=== PATIENT | female | born 1980 | race Hispanic/Latino ===

== ENCOUNTER 2017-12-19 12:04 | Inpatient (IN) | payer MEDICAID, OTHER ==
[2017-12-19 12:43] VITALS: BMI 19.5
--- NOTE | 2017-12-19 12:45 | ED PDOC ---
Arrival/HPI - General Time Seen by Provider: 12/19/17 12:42 - History of Present Illness Narrative History of Present Illness (Text): 37 y/o F c PMHx PCOS, bipolar disorder transferred from [facility] for psychiatric admission. Patient states she has been having increased anxiety , feeling overwhelmed with adult responsibilities. She finds herself avoiding activities that will make her anxious. She states she has been laying in bed for a long time and not finding any enjoyment in activities. Medically cleared at [facility]. Family/Social History Family/Social History: No Known Family HX Allergies/Home Meds Allergies/Adverse Reactions: Allergies No Known Allergies Allergy (Verified 12/19/17 12:42) Home Medications: Home Meds Medication Instructions Recorded Confirmed No Known Home Med 12/19/17 12/19/17 Review of Systems - Physician Review All systems were reviewed & negative as marked: Yes - Review of Systems Constitutional: absent: Fevers Respiratory: absent: SOB Physical Exam - Physical Exam Narrative Physical Exam (Text): Gen: NAD Head: NC Eyes: No scleral icterus ENT: MMM Neck: No goiter CV: Regular rate Resp: No accessory muscle use Extremities: No swelling Skin: No rash Neuro: Alert, no focal deficit Vital Signs Temp Pulse Resp BP Pulse Ox 12/19/17 12:22 98.3 F 86 18 121/76 100 Disposition/Present on Arrival - Present on Arrival Any Indicators Present on Arrival: Yes - Disposition Have Diagnosis and Disposition been Completed?: Yes Diagnosis: Depressive disorder Disposition Time: 12:45 Patient Plan: Admission Condition: STABLE Referrals: PCP,NO [Primary Care Provider] - Follow up with primary
[2017-12-19 13:32] VITALS: O2SAT 98
[2017-12-19] MEDS ORDERED: Alum-Mag Hydrox-Simethicone Susp (30 mL) PO PRN (14:22)
[2017-12-19] MEDS ORDERED: Magnesium Hydroxide Susp 30 ml UD PO PRN (14:22)
--- NOTE | 2017-12-19 14:43 | PCM.BM ---
<Lonnie Eduardo - Last Filed: 12/19/17 14:43> Treatment Plan Problems - Problems identified on initial assessmt Hopelessness Date Initiated: 12/19/17 Time Initiated: 14:43 Assessment reference: NA Status: Active Priority: 1 Worthlessness Date Initiated: 12/19/17 Time Initiated: 14:43 Assessment reference: NA Status: Active Priority: 2 Ineffective Coping Date Initiated: 12/19/17 Time Initiated: 14:43 Assessment reference: NA Status: Active Priority: 3 Anxiety Date Initiated: 12/19/17 Time Initiated: 14:43 Assessment reference: NA Status: Active Priority: 4 <Shauna Lambert - Last Filed: 12/20/17 13:33> - Diagnosis (1) Bipolar II disorder Status: Acute Interventions: 12/20/17 13:34 Psychoeducation Psychopharmacology/adjustment of medications as needed/ monitoring possible side effects Monitor blood level of mood stabilizers Evaluate pt on daily basis Compliance with medications and follow up appointments Suicide and homicide risk assessment and prevention, coping strategies, safety plan Relapse prevention Reduction of symptoms Improve functional status Family involvement As outpatient: cognitive behavioral therapy (2) RADHA (generalized anxiety disorder) Status: Acute Interventions: 12/20/17 13:35 Psychoeducation Psychopharmacology/adjustment of medications as needed/ monitoring possible side effects Evaluate pt on daily basis Discussion of importance of being compliant with medications and follow up appointments Suicide and homicide risk assessment and prevention, coping strategies, safety plan Reduction of symptoms Relaxation techniques and breathing exercises Improve functional status Family involvement Cognitive behavioral therapy as outpatient (3) Panic disorder Status: Acute Interventions: 12/20/17 13:40 Psychoeducation Psychopharmacology/adjustment of medications as needed/ monitoring possible side effects Evaluate pt on daily basis Discussion of importance of being compliant with medications and follow up appointments Suicide and homicide risk assessment and prevention, coping strategies, safety plan Reduction of symptoms Relaxation techniques and breathing exercises Improve functional status Family involvement Cognitive behavioral therapy as outpatient <Dena Michael - Last Filed: 12/20/17 14:36> Family Contact Family involvement: Family/SO is involved Family contact: Patient agrees to contact Family contact name: Roberto Carver(mother) [phone] Family contacted how many times per week?: 2 <Abby Pfeiffer - Last Filed: 12/20/17 15:19>
[2017-12-20 08:08] LABS: GLUCOSE,FASTING 82 mg/dL (65-110); HDL CHOLESTEROL 42 mg/dL (29-60)
[2017-12-20 08:19] LABS: LDL CHOLESTEROL 62 mg/dL (0-129)
[2017-12-20 08:24] LABS: FREE T4 1.09 ng/dL (0.78-2.19)
--- NOTE | 2017-12-20 14:11 | PCM.PSYCH ---
Initial Psychiatric Evaluation - Initial Psychiatric Evaluation Type of Admission: Voluntary Legal Status: Capacity (patient has capacity to sign consent for treatment) Chief Complaint (in patient's own words): "I was not feeling well, I was feeling guilty, was depressed, constantly anxious , basically anxiety was a reason why I could not work" Patient's Reaction to Hospitalization: patient was admitted to the psychiatric inpatient unit for evaluation and stabilization of depressive symptoms, possible suicidal ideations with a plan to jump off the bridge, worsening of anxiety, insomnia, inability to function. History of Present Illness and Precipitating Events: shortly patient is 37 year old female, self reported history of bipolar disorder , and generalized anxiety disorder, panic disorder, 1 previous psychiatric admission, patient denied history of suicidal attempts, patient was transferred from [facility] for evaluation and stabilization of depressive symptoms, worsening of anxiety, suicidal ideation with a plan to jump over the bridge, patient required further evaluation and stabilization, medication adjustment. patient was seen and examined today at the morning time at treatment team meeting, patient presented younger than her chronological age, acceptable personal hygiene, at the same time patient appears to be careless about her presentation, good ADLs. 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 pt became depressed, hopeless, helpless, eventually patient started to have suicidal ideation with a clear to jump off the bridge. Patient denied any intent or plan to kill herself. Patient reported that she constantly feels irritable, unable to sleep, patient had episode of hypomania after Zoloft was started, patient described herself as feeling extremely happy, giving away all of her savings, talking very fast, inability to sleep, at the same time was feeling very irritable. Patient reported that she was officially diagnosed with bipolar type II. He shouldn't denied hearing voices, denied seeing things, denied paranoid ideation, patient does not appear to be psychotic. Patient denied any physical or sexual abuse, reported to have emotional abuse. Patient denied any substance abuse, denied smoking, denied alcohol consumption. Family history: Patient denied any family history of mental illness, possible anxiety spectrum disorder, denied suicidal attempts in the family. Medical history: Polycystic ovarian syndrome. Past psychiatric history; Patient reported to have 1 psychiatric admission, [facility] in [place] for suicidal ideation in 2010 x 1week, had good response to Zoloft, h/o restless leg on abilify, pt is willing to try seroquel as a mood stabilizer. pt reported being noncompliant with meds. PT reports she contacted psychiatrist, Dr. Sheikh at the [facility] to obtain an appointment prior to admission. Lab Results 12/20/17 07:00: Free T4 1.09, TSH 3rd Generation 1.15 12/20/17 07:00: Fasting Glucose 82, Triglycerides 60, Cholesterol 125 L, LDL Cholesterol Direct 62, HDL Cholesterol 42 Vital Signs Temp Pulse Pulse Resp BP Pulse Ox 12/20/17 07:04 98.0 F 84 20 101/61 12/19/17 16:00 96 H 99/70 L 12/19/17 15:37 96 H 20 12/19/17 13:29 92 H 18 130/72 98 12/19/17 12:22 98.3 F 86 18 121/76 100 Current Medications: Active Medications Generic Name Dose Route Start Last Admin Trade Name Freq PRN Reason Stop Dose Admin Acetaminophen 650 mg 12/19/17 14:22 Tylenol 325mg Tab PO Q4 PRN Pain, Mild (1-3) Al Hydrox/Mg Hydrox/Simethicone 30 ml 12/19/17 14:22 Maalox Plus 30 Ml PO DAILY PRN Upset Stomach Clonazepam 0.5 mg 12/19/17 17:06 12/19/17 22:17 Klonopin PO 0.5 mg BID PRN Administration Anxiety [MOD] Protocol Lorazepam 2 mg 12/19/17 16:34 Ativan PO Q6 PRN Anxiety Protocol Lorazepam 2 mg 12/19/17 16:37 Ativan IM Q6H PRN Anxiety [SEVERE] Protocol Magnesium Hydroxide 30 ml 12/19/17 14:22 Milk Of Magnesia PO DAILY PRN Constipation Mirtazapine 15 mg 12/19/17 16:30 12/19/17 22:17 Remeron PO 15 mg HS PRN Administration Insomnia Quetiapine Fumarate 50 mg 12/20/17 22:00 Seroquel PO HS ODILIA Protocol Sertraline HCl 50 mg 12/20/17 12:30 Zoloft PO DAILY ODILIA Ziprasidone 20 mg 12/19/17 16:33 Geodon Cap PO Q6 PRN Agitation [MOD] Protocol Ziprasidone 20 mg 12/19/17 16:36 Geodon Inj IM Q6 PRN Agitation [SEVERE] Protocol risk, benefits, alternatives were discussed with the patient, patient verbalized understanding. Past Psychiatric History - Past Psychiatric History Previous Treatment History: Inpatient Prior Professional Help: see HPI Prior Psychiatric Treatment: see HPI At [facility]: see HPI Duration: see HPI Nature of Treatment: see HPI Explanation of prior treatment: see HPI History of Abuse: see HPI History of ETOH/Drug Use: see HPI History of Family Illness: see HPI Pertinent Medical Hx (Current Medical&Sleep Prob, Allergies): Allergies Allergy/AdvReac Type Severity Reaction Status Date / Time No Known Allergies Allergy Verified 12/19/17 14:32 No Known Home Med 12/19/17 Review of Systems - Review of Systems Systems not reviewed;Unavailable: Acuity of Condition - EENT Eyes: As Per HPI Ears: As Per HPI Nose/Mouth/Throat: As Per HPI - Breasts Breasts: As Per HPI - Cardiovascular Cardiovascular: As Per HPI - Respiratory Respiratory: As Per HPI - Gastrointestinal Gastrointestinal: As Per HPI - Genitourinary Genitourinary: As Per HPI - Reproductive: Female Reproductive:Female: As Per HPI - Menstruation Menstruation: As Per HPI - Musculoskeletal Musculoskeletal: As Par HPI - Integumentary Integumentary: As Per HPI - Neurological Neurological: As Per HPI - Psychiatric Psychiatric: As Per HPI - Endocrine Endocrine: As Per HPI - Hematologic/Lymphatic Hematologic: As Per HPI Mental Status Examination - Personal Presentation Personal Presentation: Looks younger than stated age - Affect Affect: Flat - Motor Activity Motor Activity: Calm - Reliability in Providing Information Reliability in Providing Information: Fair - Speech Speech: Organized - Mood Mood: Depressed, Anxious - Formal Thought Process Formal Thought Process: No Impairment - Obsessions/Compulsions Obsessions: None Compulsions: None - Cognitive Functions Orientation: Person, Place, Situation, Time Sensorium: Alert Attention/Concentration: Easily distracted Abstract Thinking: As evidence by literal perception of proverbs Estimate of Intelligence: Average Judgement: Intact, as evidence by: Insight regarding need for hospitalization - Risk Risk: Suicidal, Diminished functioning - Strength & Assets Inventory Strength & Assets Inventory: Intelligence, Family support, Education, Life experience, Cooperative - Limitations Limitations: Other (h/o noncompliance with meds) DSM 5 DX - DSM 5 DSM 5 Diagnosis: bipolar type II as per history, most recent episode mixed Rule out generalized anxiety disorder Rule out panic disorder - Recommended/Plan of Treatment Treatment Recommendations and Plan of Treatment: Milieu/structure/supportive therapy Medical consult will be considered if needed SW consultation for discharge plan and social issues Med management patient wants to be introduced to Zoloft, 50 mg by mouth daily for depression and anxiety Seroquel 50 mg at the nighttime for mood stabilization Remeron as needed for insomnia and depression Family involvement Follow up on labs Will monitor closely Pt was educated about risk/benefits and alternatives of medications, coping strategies (safety plan, suicide prevention), relapse prevention, importance of follow up with psychiatrist and therapist, stay away from drugs/alcohol/smoking Projected ELOS: 7days Prognosis: fair Discharge Plan and Discharge Criteria: Pt will be not depressed or manic, will be more hopeful, will be not psychotic or anxious, will be not having thoughts of harming self or others, will be tolerating medications well, will not have major side effects, will be able to function, will not pose threat to self or others. - Smoking Cessation Smoking Cessation Initiated: No Reason for not providing: denies smoking
--- NOTE | 2017-12-21 09:48 | PCM.PYCHPN ---
Psychiatric Progress Note - Psychiatric Progress Note Patient seen today, length of contact: 25 min Patient Chief Complaint: "mood is better, not as hopeless I guess" Problems Identified/Issues Discussed: I reviewed assessment and recent notes. Patient is 37 year old female, self reported history of bipolar disorder, and generalized anxiety disorder, panic disorder, one previous psychiatric admission who was transferred from [facility] for evaluation and stabilization of depressive symptoms, worsening of anxiety, suicidal ideation with a plan to jump off the bridge. Patient has been in good control on the unit. She can express her needs well and complies with staff requests. I met with her at bedside and she appears fairly groomed and alert. Oriented x3. Patient indicates that her "mood is better, not as hopeless I guess". She has been sleeping well and feels this has contributed to her improved mood. Anxiety persists but "more manageable". Thus far she is tolerating her medications and denies any side effects. Thought process is coherent. She denies any perceptual disturbance. Staff notes indicate that she has been visible and socializing with some peers as well as attending groups. There were no behavioral issues overnight. Diagnostic Results: bipolar type II as per history, most recent episode mixed Rule out generalized anxiety disorder Rule out panic disorder Mental Status Examination - Cognitive Function Orientation: Person, Place, Situation, Time Attention: WNL Concentration: WNL - Mood Mood: Depressed ("mood is better, not as hopeless I guess"), Anxious (persists but more manageable) - Affect Affect: Constricted, Flat - Formal Thought Process Formal Thought Process: No Impairment - Suicidal Ideation Suicidal Ideation: No - Homicidal Ideation Homicidal Ideation: No Goal/Treatment Plan - Goal/Treatment Plan Progress Toward Problem(s) and Goals/Treatment Plan: * group, milieu and supportive tx * Klonopin 0.5 mg po bid prn: anxiety * remeron 15 mg HS prn: insomnia (off-label) * Seroquel 50 mg po HS for mood stablization * Zoloft 50 mg po daily for depression and anxiety * Vitals reviewed and noted below: 12/21/17 07:00 Temperature 98.0 F Pulse Rate 81 Respiratory 18 Rate Blood Pressure 96/58 L * New floor labs noted below: 12/20/17 12/20/17 12/20/17 07:00 07:00 07:00 Fasting Glucose 82 Triglycerides 60 Cholesterol 125 L LDL Cholesterol Direct 62 HDL Cholesterol 42 Free T4 1.09 TSH 3rd Generation 1.15 RPR Nonreactive
--- NOTE | 2017-12-22 09:23 | PCM.PYCHPN ---
Psychiatric Progress Note - Psychiatric Progress Note Patient seen today, length of contact: 25 min Patient Chief Complaint: "mood is better than before but still not great". She feels neither hopeful or hopeless.. "I guess, neutral?" Problems Identified/Issues Discussed: I reviewed recent notes. Patient is 37 year old female, self reported history of bipolar disorder and generalized anxiety disorder, panic disorder, one previous psychiatric admission who was transferred from [facility] for evaluation and stabilization of depressive symptoms, worsening of anxiety, suicidal ideation with a plan to jump off the bridge. Patient has been in good control on the unit. She can express her needs well and complies with staff requests. I met with her at bedside this morning again and she remains fairly groomed and alert. Oriented x3. Patient indicates that her "mood is better than before but still not great". She feels neither hopeful or hopeless.. "I guess, neutral?" She continues to sleep well and feels this has contributed to her improved mood. Anxiety persists but "more manageable". Thus far she is tolerating her medications and denies any side effects. Thought process is coherent. She denies any perceptual disturbance. Staff notes indicate that she has been visible, socializing with some peers and attends some groups but in general appears depressed and reclusive. There were no behavioral issues overnight. Diagnostic Results: bipolar type II as per history, most recent episode mixed Rule out generalized anxiety disorder Rule out panic disorder Mental Status Examination - Cognitive Function Orientation: Person, Place, Situation, Time Attention: WNL Concentration: WNL - Mood Mood: Depressed ( "mood is better than before but still not great". She feels neither hopeful or hopeless.. "I guess, neutral?" ), Anxious (persists but more manageable), Neutral - Affect Affect: Constricted, Flat - Formal Thought Process Formal Thought Process: No Impairment - Suicidal Ideation Suicidal Ideation: No - Homicidal Ideation Homicidal Ideation: No Goal/Treatment Plan - Goal/Treatment Plan Progress Toward Problem(s) and Goals/Treatment Plan: * group, milieu and supportive tx * Klonopin 0.5 mg po bid prn: anxiety * remeron 15 mg HS prn: insomnia (off-label) * Seroquel 50 mg po HS for mood stablization * Zoloft 50 mg po daily for depression and anxiety * Vitals reviewed and noted below: 12/22/17 06:50 Temperature 97.7 F Pulse Rate 86 Respiratory 20 Rate Blood Pressure 104/64 * New floor labs noted below: 12/20/17 12/20/17 12/20/17 07:00 07:00 07:00 Fasting Glucose 82 Triglycerides 60 Cholesterol 125 L LDL Cholesterol Direct 62 HDL Cholesterol 42 Free T4 1.09 TSH 3rd Generation 1.15 RPR Nonreactive
--- NOTE | 2017-12-23 10:47 | PCM.PYCHPN ---
Psychiatric Progress Note - Psychiatric Progress Note Patient seen today, length of contact: 25 min Patient Chief Complaint: "mood is better than before but still not great". She feels neither hopeful or hopeless.. "I guess, neutral?" Problems Identified/Issues Discussed: I reviewed recent notes. Patient is 37 year old female, self reported history of bipolar disorder, and generalized anxiety disorder, panic disorder, one previous psychiatric admission who was transferred from [facility] for evaluation and stabilization of depressive symptoms, worsening of anxiety, suicidal ideation with a plan to jump off the bridge. Patient remains in good control on the unit. She can express her needs well and complies with staff requests. I met with her at bedside and she appears fairly groomed and alert. Oriented x3. Patient indicates that her "mood is getting better". She feels a little more hopeful today, she still feels neutral, denies hopelessness. She continues to sleep well and feels this has contributed to her improved mood. She hasn't needed remeron since 12/19/17. Thus far she is tolerating her medications and denies any side effects. Thought process is coherent. She denies any perceptual disturbance. Staff notes indicate that she has been pleasant, visible, socializing with some peers and attends some groups. 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 Family seems very supportive during visiting hours. She still appears depressed but has been improving. There were no behavioral issues overnight. Diagnostic Results: bipolar type II as per history, most recent episode mixed Rule out generalized anxiety disorder Rule out panic disorder Mental Status Examination - Cognitive Function Orientation: Person, Place, Situation, Time Attention: WNL Concentration: WNL - Mood Mood: Depressed ( "mood is better than before but still not great". She feels neither hopeful or hopeless.. "I guess, neutral?" ), Anxious (persists but more manageable), Neutral - Affect Affect: Constricted, Flat - Formal Thought Process Formal Thought Process: No Impairment - Suicidal Ideation Suicidal Ideation: No - Homicidal Ideation Homicidal Ideation: No Goal/Treatment Plan - Goal/Treatment Plan Progress Toward Problem(s) and Goals/Treatment Plan: * group, milieu and supportive tx * Klonopin 0.5 mg po bid prn: anxiety * remeron 15 mg HS prn: insomnia (off-label) ~patient hasn't needed this medication since 3/7/18. * Seroquel 50 mg po HS for mood stablization * Zoloft 50 mg po daily for depression and anxiety * Vitals reviewed and noted below: 12/23/17 07:00 Temperature 97.7 F Pulse Rate 94 H Respiratory 22 Rate Blood Pressure 94/56 L * New floor labs noted below: 12/20/17 12/20/17 12/20/17 07:00 07:00 07:00 Fasting Glucose 82 Triglycerides 60 Cholesterol 125 L LDL Cholesterol Direct 62 HDL Cholesterol 42 Free T4 1.09 TSH 3rd Generation 1.15 RPR Nonreactive
--- NOTE | 2017-12-23 20:48 | CP.PCM.PN ---
<Maria MMartha - Last Filed: 12/23/17 20:43> Subjective - Date & Time of Evaluation Date of Evaluation: 12/23/17 Time of Evaluation: 18:35 - Subjective Subjective: Called to evaluate patient, 37 y/o admitted to psych [facility], patient complaining of vaginal spotting. States the vaginal spotting has been going on for 2 months , on/off. Patient denies cp, sob, or dizziness. Objective - Vital Signs/Intake and Output Vital Signs (last 24 hours): Temp Pulse Resp BP Pulse Ox 97.7 F 87 22 95/61 L 98 12/23/17 07:00 12/23/17 16:37 12/23/17 07:00 12/23/17 16:37 12/19/17 13:29 - Medications Medications: Current Medications Acetaminophen (Tylenol 325mg Tab) 650 mg PO Q4 PRN PRN Reason: Pain, Mild (1-3) Al Hydrox/Mg Hydrox/Simethicone (Maalox Plus 30 Ml) 30 ml PO DAILY PRN PRN Reason: Upset Stomach Clonazepam (Klonopin) 0.5 mg PO BID PRN; Protocol PRN Reason: Anxiety [MOD] Last Admin: 12/22/17 21:14 Dose: 0.5 mg Lorazepam (Ativan) 2 mg PO Q6 PRN; Protocol PRN Reason: Anxiety Lorazepam (Ativan) 2 mg IM Q6H PRN; Protocol PRN Reason: Anxiety [SEVERE] Magnesium Hydroxide (Milk Of Magnesia) 30 ml PO DAILY PRN PRN Reason: Constipation Mirtazapine (Remeron) 15 mg PO HS PRN PRN Reason: Insomnia Last Admin: 12/19/17 22:17 Dose: 15 mg Quetiapine Fumarate (Seroquel) 50 mg PO HS ODILIA PRN Reason: Protocol Last Admin: 12/22/17 21:12 Dose: 50 mg Sertraline HCl (Zoloft) 50 mg PO DAILY [facility] Last Admin: 12/23/17 08:18 Dose: 50 mg Ziprasidone (Geodon Cap) 20 mg PO Q6 PRN; Protocol PRN Reason: Agitation [MOD] Ziprasidone (Geodon Inj) 20 mg IM Q6 PRN; Protocol PRN Reason: Agitation [SEVERE] - Constitutional Appears: No Acute Distress - Head Exam Head Exam: ATRAUMATIC, NORMAL INSPECTION, NORMOCEPHALIC - Eye Exam Eye Exam: Normal appearance. absent: Scleral icterus (pale sclera) - ENT Exam ENT Exam: Mucous Membranes Moist - Respiratory Exam Respiratory Exam: Clear to Ausculation Bilateral, NORMAL BREATHING PATTERN. absent: Rhonchi, Wheezes, Respiratory Distress, Stridor - Cardiovascular Exam Cardiovascular Exam: REGULAR RHYTHM, RRR, +S1, +S2 - GI/Abdominal Exam GI & Abdominal Exam: Soft, Normal Bowel Sounds. absent: Distended, Firm, Guarding, Rigid, Tenderness - Extremities Exam Extremities Exam: Normal Inspection - Back Exam Back Exam: NORMAL INSPECTION - Neurological Exam Neurological Exam: Alert, Awake, Oriented x3 - Psychiatric Exam Psychiatric exam: Normal Affect, Normal Mood - Skin Skin Exam: Dry, Intact, Normal Color, Warm Assessment and Plan - Assessment and Plan (Free Text) Assessment: 37 y/o admitted on psych castillo and medicine is called to evaluate for possible vaginal spotting for 2 months. Plan: - Will obtain stat cbc, type and screen and cross, cmp, - Will follow up with lab and transfuse if hg if below 7. <Carolina Coombs - Last Filed: 12/23/17 23:59> Objective - Vital Signs/Intake and Output Vital Signs (last 24 hours): Temp Pulse Resp BP Pulse Ox 97.7 F 87 22 95/61 L 98 12/23/17 07:00 12/23/17 16:37 12/23/17 07:00 12/23/17 16:37 12/19/17 13:29 - Medications Medications: Current Medications Acetaminophen (Tylenol 325mg Tab) 650 mg PO Q4 PRN PRN Reason: Pain, Mild (1-3) Al Hydrox/Mg Hydrox/Simethicone (Maalox Plus 30 Ml) 30 ml PO DAILY PRN PRN Reason: Upset Stomach Clonazepam (Klonopin) 0.5 mg PO BID PRN; Protocol PRN Reason: Anxiety [MOD] Last Admin: 12/23/17 21:06 Dose: 0.5 mg Lorazepam (Ativan) 2 mg PO Q6 PRN; Protocol PRN Reason: Anxiety Lorazepam (Ativan) 2 mg IM Q6H PRN; Protocol PRN Reason: Anxiety [SEVERE] Magnesium Hydroxide (Milk Of Magnesia) 30 ml PO DAILY PRN PRN Reason: Constipation Mirtazapine (Remeron) 15 mg PO HS PRN PRN Reason: Insomnia Last Admin: 12/19/17 22:17 Dose: 15 mg Quetiapine Fumarate (Seroquel) 50 mg PO HS ODILIA PRN Reason: Protocol Last Admin: 12/23/17 21:06 Dose: 50 mg Sertraline HCl (Zoloft) 50 mg PO DAILY [facility] Last Admin: 12/23/17 08:18 Dose: 50 mg Ziprasidone (Geodon Cap) 20 mg PO Q6 PRN; Protocol PRN Reason: Agitation [MOD] Ziprasidone (Geodon Inj) 20 mg IM Q6 PRN; Protocol PRN Reason: Agitation [SEVERE] - Labs Labs: 12/23/17 21:15 12/23/17 21:15
[2017-12-23 21:39] LABS: BASO # 0.03 K/mm3 (0.0-2.0); BASO % 0.5 % (0.0-3.0); EOS # 0.3 (0.0-0.7); EOS % 4.2 % (1.5-5.0); GRAN # 3.19 (1.4-6.5); HEMOGLOBIN 10.5 g/dL (12.0-16.0); LYMPH # 1.9 (1.2-3.4); LYMPH % 31.3 % (22.0-35.0); MEAN CELL VOLUME 86.3 fl (80.0-105.0); MEAN CORPUSCULAR HEMOGLOBIN 27.1 pg (25.0-35.0); MEAN CORPUSCULAR HGB CONC 31.4 g/dl (31.0-37.0); MEAN PLATELET VOLUME 10.2 fl (7.0-11.0); MONO # 0.6 (0.1-0.6); RBC 3.87 10^6/uL (3.5-6.1); RED CELL DISTRIBUTION WIDTH 12.9 % (11.5-14.5); WHITE BLOOD COUNT 5.9 10^3/ul (4.5-11.0)
[2017-12-23 21:45] LABS: ALB/GLOB RATIO 1.2 (1.1-1.8); ALT/SGPT 24 U/L (7-56); AST/SGOT 24 U/L (14-36); BLOOD UREA NITROGEN 13 mg/dL (7-21); CALCIUM 9.4 mg/dL (8.4-10.5); GFR AFRICAN-AMERICAN > 60; GFR NON-AFRICAN AMERICAN > 60
[2017-12-24 08:21] LABS: BASO # 0.01 K/mm3 (0.0-2.0); BASO % 0.2 % (0.0-3.0); EOS # 0.2 (0.0-0.7); EOS % 4.8 % (1.5-5.0); GRAN # 2.49 (1.4-6.5); GRAN % 49.9 % (50.0-68.0); HEMOGLOBIN 10.6 g/dL (12.0-16.0); LYMPH # 1.8 (1.2-3.4); LYMPH % 35.3 % (22.0-35.0); MEAN CELL VOLUME 86.5 fl (80.0-105.0); MEAN CORPUSCULAR HEMOGLOBIN 27.5 pg (25.0-35.0); MEAN CORPUSCULAR HGB CONC 31.7 g/dl (31.0-37.0); MEAN PLATELET VOLUME 10.1 fl (7.0-11.0); MONO # 0.5 (0.1-0.6); MONO % 9.8 % (1.0-6.0); RBC 3.86 10^6/uL (3.5-6.1)
[2017-12-24 08:28] LABS: PARTIAL THROMBOPLASTIN TIME 35.1 Seconds (25.1-36.5); PROTHROMBIN TIME 11.5 SECONDS (9.4-12.5)
[2017-12-24 08:29] LABS: IRON 28 ug/dL (45-180)
[2017-12-24 08:31] LABS: ALB/GLOB RATIO 1.1 (1.1-1.8); ALBUMIN 3.7 g/dL (3.0-4.8); ALT/SGPT 22 U/L (7-56); AST/SGOT 27 U/L (14-36); BLOOD UREA NITROGEN 18 mg/dL (7-21); CALCIUM 9.2 mg/dL (8.4-10.5); GFR AFRICAN-AMERICAN > 60; GFR NON-AFRICAN AMERICAN > 60
[2017-12-24 08:38] LABS: % IRON SATURATION 9 % (20-55); TOTAL IRON BINDING CAPACITY 316 ug/dL (265-497)
--- NOTE | 2017-12-24 09:36 | CP.PCM.CON ---
<Garnt Degroot - Last Filed: 12/24/17 19:57> History of Present Illness - History of Present Illness History of Present Illness: Amycheo Zane DO PGY1 - IM Consult Note for Dr. Allen Consultation for vaginal bleeding HPI: 37 yo F with PMH of PCOS and bipolar disorder who initially presented, and ultimately was admitted to the psych unit for depression. Consultation was called for vaginal bleeding. Patient reports that she has been continuously spotting for 2 months. She reports some days with heavy bleeding and clots as well, but usually requires one pad daily. This has never happened to her before. Normally, her periods occur monthly, regularly, last 7 days with moderate amount of bleeding. Several years ago, she had irregular periods, including a 6 month period of amenorrhea, but since then, has had regular cycles. She is not sexually active, and has never been. She denies any pelvic pain, dysuria, vaginal discharge, hematuria, easy bruising, or recent trauma. She does admit to occasional nosebleeds and bleeding gums. She denies any chest pain, headache, shortness of breath, dizziness, fever, chills, nausea, vomiting , diarrhea, constipation, back pain, abdominal pain. She denies any history of sexually transmitted infections, uterine fibroids or polyps. No family history of gynecological cancers. She has never been . 12 point ROS was obtained and was negative except as above PMH: Bipolar disorder, PCOS PSH: Denies FHx: "Heart disease" in grandmother Soc: Denies tobacco, alcohol, or illicits. Not sexually active. 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 All: NKDA Home meds: Was taking lexapro prior to admission Past Patient History - Past Social History Smoking Status: Never Smoked - CARDIAC Hx Cardiac Disorders: No - PULMONARY Hx Respiratory Disorders: No - NEUROLOGICAL Hx Neurological Disorder: No - HEENT Hx HEENT Problems: No - RENAL Hx Chronic Kidney Disease: No - ENDOCRINE/METABOLIC Hx Endocrine Disorders: No - HEMATOLOGICAL/ONCOLOGICAL Hx Blood Disorders: No - INTEGUMENTARY Hx Dermatological Problems: No - MUSCULOSKELETAL/RHEUMATOLOGICAL Hx Musculoskeletal Disorders: No - GASTROINTESTINAL Hx Gastrointestinal Disorders: No - GENITOURINARY/GYNECOLOGICAL Hx Genitourinary Disorders: No - PSYCHIATRIC Hx Anxiety: Yes Hx Depression: Yes Hx Substance Use: No - SURGICAL HISTORY Hx Surgeries: No - ANESTHESIA Hx Anesthesia: No Meds Allergies/Adverse Reactions: Allergies Allergy/AdvReac Type Severity Reaction Status Date / Time No Known Allergies Allergy Verified 12/19/17 14:32 - Medications Medications: Current Medications Acetaminophen (Tylenol 325mg Tab) 650 mg PO Q4 PRN PRN Reason: Pain, Mild (1-3) Al Hydrox/Mg Hydrox/Simethicone (Maalox Plus 30 Ml) 30 ml PO DAILY PRN PRN Reason: Upset Stomach Clonazepam (Klonopin) 0.5 mg PO BID PRN; Protocol PRN Reason: Anxiety [MOD] Last Admin: 12/23/17 21:06 Dose: 0.5 mg Lorazepam (Ativan) 2 mg PO Q6 PRN; Protocol PRN Reason: Anxiety Lorazepam (Ativan) 2 mg IM Q6H PRN; Protocol PRN Reason: Anxiety [SEVERE] Magnesium Hydroxide (Milk Of Magnesia) 30 ml PO DAILY PRN PRN Reason: Constipation Mirtazapine (Remeron) 15 mg PO HS PRN PRN Reason: Insomnia Last Admin: 12/19/17 22:17 Dose: 15 mg Quetiapine Fumarate (Seroquel) 50 mg PO HS ODILIA PRN Reason: Protocol Last Admin: 12/23/17 21:06 Dose: 50 mg Sertraline HCl (Zoloft) 50 mg PO DAILY [facility] Last Admin: 12/24/17 08:56 Dose: 50 mg Ziprasidone (Geodon Cap) 20 mg PO Q6 PRN; Protocol PRN Reason: Agitation [MOD] Ziprasidone (Geodon Inj) 20 mg IM Q6 PRN; Protocol PRN Reason: Agitation [SEVERE] Physical Exam - Constitutional Appears: Non-toxic, No Acute Distress - Head Exam Head Exam: ATRAUMATIC, NORMOCEPHALIC - Eye Exam Eye Exam: EOMI, Normal appearance, PERRL - ENT Exam ENT Exam: Mucous Membranes Moist - Neck Exam Neck exam: Positive for: Normal Inspection - Respiratory Exam Respiratory Exam: Clear to Auscultation Bilateral, NORMAL BREATHING PATTERN - Cardiovascular Exam Cardiovascular Exam: RRR, +S1, +S2 - GI/Abdominal Exam GI & Abdominal Exam: Normal Bowel Sounds, Soft. absent: Tenderness - Extremities Exam Extremities exam: Positive for: normal inspection. Negative for: calf tenderness, pedal edema - Neurological Exam Neurological exam: Alert, Oriented x3 - Psychiatric Exam Psychiatric exam: Normal Affect, Normal Mood - Skin Skin Exam: Dry, Intact Results - Vital Signs Recent Vital Signs: Last Vital Signs Temp 97.4 F L 12/24/17 07:44 Pulse 72 12/24/17 07:44 Resp 20 12/24/17 07:44 BP 90/54 L 12/24/17 07:44 Pulse Ox 98 12/19/17 13:29 - Labs Result Diagrams: 12/24/17 07:45 12/24/17 07:45 Labs: Laboratory Results - last 24 hr 12/23/17 12/23/17 12/23/17 21:15 21:15 21:15 WBC 5.9 RBC 3.87 Hgb 10.5 L Hct 33.4 L MCV 86.3 MCH 27.1 MCHC 31.4 RDW 12.9 Plt Count 224 MPV 10.2 Gran % 54.0 Lymph % (Auto) 31.3 [place] % (Auto) 10.0 H Eos % (Auto) 4.2 Baso % (Auto) 0.5 Gran # 3.19 Lymph # (Auto) 1.9 [place] # (Auto) 0.6 Eos # (Auto) 0.3 Baso # (Auto) 0.03 PT INR APTT Sodium 146 Potassium 3.9 Chloride 107 Carbon Dioxide 29 Anion Gap 13 BUN 13 Creatinine 1.0 Est GFR ( Amer) > 60 Est GFR (Non-Af Amer) > 60 Random Glucose 86 Calcium 9.4 Iron TIBC % Saturation Total Bilirubin 0.2 AST 24 ALT 24 Alkaline Phosphatase 39 Total Protein 7.4 Albumin 4.0 Globulin 3.4 Albumin/Globulin Ratio 1.2 Urine HCG, Qual Blood Type B POSITIVE Blood Type Confirm Antibody Screen Negative Crossmatch See Detail BBK History Checked No verified bt 12/23/17 12/24/17 12/24/17 21:35 07:45 07:45 WBC 5.0 RBC 3.86 Hgb 10.6 L Hct 33.4 L MCV 86.5 MCH 27.5 MCHC 31.7 RDW 13.0 Plt Count 195 MPV 10.1 Gran % 49.9 L Lymph % (Auto) 35.3 H [place] % (Auto) 9.8 H Eos % (Auto) 4.8 Baso % (Auto) 0.2 Gran # 2.49 Lymph # (Auto) 1.8 [place] # (Auto) 0.5 Eos # (Auto) 0.2 Baso # (Auto) 0.01 PT 11.5 INR 1.00 APTT 35.1 Sodium Potassium Chloride Carbon Dioxide Anion Gap BUN Creatinine Est GFR ( Amer) Est GFR (Non-Af Amer) Random Glucose Calcium Iron TIBC % Saturation Total Bilirubin AST ALT Alkaline Phosphatase Total Protein Albumin Globulin Albumin/Globulin Ratio Urine HCG, Qual Blood Type Blood Type Confirm B POSITIVE Antibody Screen Crossmatch BBK History Checked 12/24/17 12/24/17 12/24/17 07:45 07:45 08:34 WBC RBC Hgb Hct MCV MCH MCHC RDW Plt Count MPV Gran % Lymph % (Auto) [place] % (Auto) Eos % (Auto) Baso % (Auto) Gran # Lymph # (Auto) [place] # (Auto) Eos # (Auto) Baso # (Auto) PT INR APTT Sodium 143 Potassium 4.3 Chloride 110 H Carbon Dioxide 27 Anion Gap 11 BUN 18 Creatinine 0.7 Est GFR ( Amer) > 60 Est GFR (Non-Af Amer) > 60 Random Glucose 86 Calcium 9.2 Iron 28 L TIBC 316 % Saturation 9 L Total Bilirubin 0.2 AST 27 ALT 22 Alkaline Phosphatase 38 Total Protein 6.9 Albumin 3.7 Globulin 3.2 Albumin/Globulin Ratio 1.1 Urine HCG, Qual Negative Blood Type Blood Type Confirm Antibody Screen Crossmatch BBK History Checked Assessment & Plan - Assessment and Plan (Free Text) Assessment: 37 yo F with PMH of bipolar disorder and PCOS admitted for major depression; consultation for persistent vaginal bleeding x2 months 1. Dysfunctional uterine bleeding - Ordered transvaginal US to r/o fibroid, polyp, and evaluate endometrium - PT/INR and PTT normal - TSH and T4 WNL - Urine test negative - Pending transvaginal US, patient will require further outpatient workup and management with OBGYN 2. Anemia - Patient has mild normocytic anemia, likely 2/2 vaginal bleed - Iron studies ordered; low serum iron, normal TIBC, and low ferritin - Folate and B12 WNL - Patient is asymptomatic; no chest pain, dizziness, or shortness of breath - Start PO iron supplement; start colace to prevent constipation Plan discussed with Dr. Allen <Alexy Allen - Last Filed: 12/25/17 08:34> Meds - Medications Medications: Current Medications Acetaminophen (Tylenol 325mg Tab) 650 mg PO Q4 PRN PRN Reason: Pain, Mild (1-3) Al Hydrox/Mg Hydrox/Simethicone (Maalox Plus 30 Ml) 30 ml PO DAILY PRN PRN Reason: Upset Stomach Clonazepam (Klonopin) 0.5 mg PO BID PRN; Protocol PRN Reason: Anxiety [MOD] Last Admin: 12/24/17 21:05 Dose: 0.5 mg Docusate Sodium (Colace) 100 mg PO DAILY [facility]IL[facility] Ferrous Sulfate (Feosol) 324 mg PO TID [facility]ILIA Lorazepam (Ativan) 2 mg PO Q6 PRN; Protocol PRN Reason: Anxiety Lorazepam (Ativan) 2 mg IM Q6H PRN; Protocol PRN Reason: Anxiety [SEVERE] Magnesium Hydroxide (Milk Of Magnesia) 30 ml PO DAILY PRN PRN Reason: Constipation Mirtazapine (Remeron) 15 mg PO HS PRN PRN Reason: Insomnia Last Admin: 12/19/17 22:17 Dose: 15 mg Quetiapine Fumarate (Seroquel) 50 mg PO HS [place] PRN Reason: Protocol Last Admin: 12/24/17 21:05 Dose: 50 mg Sertraline HCl (Zoloft) 50 mg PO DAILY [facility] Last Admin: 12/24/17 08:56 Dose: 50 mg Ziprasidone (Geodon Cap) 20 mg PO Q6 PRN; Protocol PRN Reason: Agitation [MOD] Ziprasidone (Geodon Inj) 20 mg IM Q6 PRN; Protocol PRN Reason: Agitation [SEVERE] Results - Vital Signs Recent Vital Signs: Last Vital Signs Temp 98.2 F 12/25/17 07:02 Pulse 74 12/25/17 07:02 Resp 20 12/25/17 07:02 BP 90/55 L 12/25/17 07:02 Pulse Ox 98 12/19/17 13:29 - Labs Result Diagrams: 12/24/17 07:45 12/24/17 07:45 Labs: Laboratory Results - last 24 hr 12/24/17 12/24/17 12/24/17 07:45 07:45 07:45 PT 11.5 INR 1.00 APTT 35.1 Sodium 143 Potassium 4.3 Chloride 110 H Carbon Dioxide 27 Anion Gap 11 BUN 18 Creatinine 0.7 Est GFR ( Amer) > 60 Est GFR (Non-Af Amer) > 60 Random Glucose 86 Calcium 9.2 Iron 28 L TIBC 316 % Saturation 9 L Ferritin 6.2 Total Bilirubin 0.2 AST 27 ALT 22 Alkaline Phosphatase 38 Total Protein 6.9 Albumin 3.7 Globulin 3.2 Albumin/Globulin Ratio 1.1 Vitamin B12 726 Folate 10.4 Urine HCG, Qual 12/24/17 08:34 PT INR APTT Sodium Potassium Chloride Carbon Dioxide Anion Gap BUN Creatinine Est GFR ( Amer) Est GFR (Non-Af Amer) Random Glucose Calcium Iron TIBC % Saturation Ferritin Total Bilirubin AST ALT Alkaline Phosphatase Total Protein Albumin Globulin Albumin/Globulin Ratio Vitamin B12 Folate Urine HCG, Qual Negative Attending/Attestation - Attestation I have personally seen and examined this patient.: Yes I have fully participated in the care of the patient.: Yes I have reviewed all pertinent clinical information: Yes Notes (Text): 37 yo F with PMH of bipolar disorder and PCOS admitted for major depression; consultation for persistent vaginal bleeding x2 months 1. Dysfunctional uterine bleeding - Ordered transvaginal US to r/o fibroid, polyp, and evaluate endometrium - PT/INR and PTT normal - TSH and T4 WNL - Urine test negative - Pending transvaginal US, patient will require further outpatient workup and management with OBGYN 2. Anemia - Patient has mild normocytic anemia, likely 2/2 vaginal bleed - Iron studies ordered; low serum iron, normal TIBC, and low ferritin - Folate and B12 WNL - Patient is asymptomatic; no chest pain, dizziness, or shortness of breath - Start PO iron supplement; start colace to prevent constipation 3. continue psychiatric care per Psych attending.
--- NOTE | 2017-12-24 11:14 | PCM.PYCHPN ---
Psychiatric Progress Note - Psychiatric Progress Note Patient seen today, length of contact: 25 min Patient Chief Complaint: "mood is better than before but still not great". She feels neither hopeful or hopeless.. "I guess, neutral?" Problems Identified/Issues Discussed: I reviewed recent notes. Patient is 37 year old female, self reported history of bipolar disorder, and generalized anxiety disorder, panic disorder, one previous psychiatric admission who was transferred from [facility] for evaluation and stabilization of depressive symptoms, worsening of anxiety, suicidal ideation with a plan to jump off the bridge. Patient remains in good control on the unit. She can express her needs well and complies with staff requests. I met with her at bedside and she appears fairly groomed and alert. Oriented x3. Patient indicates that her "mood is getting better". She feels a little more hopeful today, she still feels neutral, denies hopelessness. She continues to sleep well and feels this has contributed to her improved mood. She hasn't needed remeron since 12/19/17. Thus far she is tolerating her medications and denies any side effects. Thought process is coherent. She denies any perceptual disturbance. Staff notes indicate that she has been pleasant, visible, socializing with some peers and attends some groups. 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 Family seems very supportive during visiting hours. She still appears depressed but has been improving. There were no behavioral issues overnight. Diagnostic Results: bipolar type II as per history, most recent episode mixed Rule out generalized anxiety disorder Rule out panic disorder Mental Status Examination - Cognitive Function Orientation: Person, Place, Situation, Time Attention: WNL Concentration: WNL - Mood Mood: Depressed ( "mood is better than before but still not great". She feels neither hopeful or hopeless.. "I guess, neutral?" ), Anxious (persists but more manageable), Neutral - Affect Affect: Constricted, Flat - Formal Thought Process Formal Thought Process: No Impairment - Suicidal Ideation Suicidal Ideation: No - Homicidal Ideation Homicidal Ideation: No Goal/Treatment Plan - Goal/Treatment Plan Progress Toward Problem(s) and Goals/Treatment Plan: * group, milieu and supportive tx * Klonopin 0.5 mg po bid prn: anxiety * remeron 15 mg HS prn: insomnia (off-label) ~patient hasn't needed this medication since 3/7/18. * Seroquel 50 mg po HS for mood stablization * Zoloft 50 mg po daily for depression and anxiety * Vitals reviewed and noted below: 12/23/17 07:00 Temperature 97.7 F Pulse Rate 94 H Respiratory 22 Rate Blood Pressure 94/56 L * New floor labs noted below: 12/20/17 12/20/17 12/20/17 07:00 07:00 07:00 Fasting Glucose 82 Triglycerides 60 Cholesterol 125 L LDL Cholesterol Direct 62 HDL Cholesterol 42 Free T4 1.09 TSH 3rd Generation 1.15 RPR Nonreactive * Note: patient informed nursing about prolonged but spotty vaginal bleeding x2 mohths. Appreciate f/u by Dr. Coombs on 12/23/[address] Grant KNAPP/Dr. Allen~ obtaining CBC, T&S, plan to transfuse if Hg<7. 12/24/17 12/24/17 12/24/17 07:45 07:45 07:45 WBC 5.0 RBC 3.86 Hgb 10.6 L Hct 33.4 L MCV 86.5 MCH 27.5 MCHC 31.7 RDW 13.0 Plt Count 195 MPV 10.1 Gran % 49.9 L Lymph % (Auto) 35.3 H [place] % (Auto) 9.8 H Eos % (Auto) 4.8 Baso % (Auto) 0.2 Gran # 2.49 Lymph # (Auto) 1.8 [place] # (Auto) 0.5 Eos # (Auto) 0.2 Baso # (Auto) 0.01 PT 11.5 INR 1.00 APTT 35.1 Sodium 143 Potassium 4.3 Chloride 110 H Carbon Dioxide 27 Anion Gap 11 BUN 18 Creatinine 0.7 Est GFR (Non-Af Amer) > 60 Random Glucose 86 Calcium 9.2 Iron TIBC % Saturation Ferritin Pending Total Bilirubin 0.2 AST 27 ALT 22 Alkaline Phosphatase 38 Total Protein 6.9 Albumin 3.7 Globulin 3.2 Albumin/Globulin Ratio 1.1 Vitamin B12 Pending Folate Pending Urine HCG, Qual 12/24/17 12/24/17 07:45 08:34 WBC RBC Hgb Hct MCV MCH MCHC RDW Plt Count MPV Gran % Lymph % (Auto) [place] % (Auto) Eos % (Auto) Baso % (Auto) Gran # Lymph # (Auto) [place] # (Auto) Eos # (Auto) Baso # (Auto) PT INR APTT Sodium Potassium Chloride Carbon Dioxide Anion Gap BUN Creatinine Est GFR (Non-Af Amer) Random Glucose Calcium Iron 28 L TIBC 316 % Saturation 9 L Ferritin Total Bilirubin AST ALT Alkaline Phosphatase Total Protein Albumin Globulin Albumin/Globulin Ratio Vitamin B12 Folate Urine HCG, Qual Negative
[2017-12-24 12:25] LABS: FERRITIN 6.2 ng/mL
[2017-12-24 12:55] LABS: FOLATE 10.4 ng/mL
--- NOTE | 2017-12-24 13:09 | US ---
HISTORY: Vaginal bleeding. Menstrual status: LMP approximately 2 months ago with continuous bleeding in the interim. COMPARISON: None available. TECHNIQUE: Transabdominal only. Real-time technique with 2D, duplex and color Doppler FINDINGS: UTERUS: Measures 3.9 x 4.5 x 8.5 cm. Normal in size and appearance. No fibroid or other mass lesion seen. ENDOMETRIUM: Measures 10.3 mm in diameter. No ultrasound findings to suggest gestational sac, fluid, debris, mass or polyp or other pathologic process within the endometrium. CERVIX: No cervical abnormality identified. RIGHT OVARY: Measures 2.2 x 3 x 3.2 cm. No solid mass. Normal flow. LEFT OVARY: Measures 2.2 x 2.8 x 3.3 cm. No solid mass. Normal flow. FREE FLUID: No significant free fluid noted. OTHER FINDINGS: None. IMPRESSION: Unremarkable pelvic ultrasound.
--- NOTE | 2017-12-25 13:45 | PCM.PYCHPN ---
Psychiatric Progress Note - Psychiatric Progress Note Patient seen today, length of contact: 30min Patient Chief Complaint: "I feel little better" Problems Identified/Issues Discussed: Suicide/ homicide prevention, past psychiatric h/o, current psychiatric symptoms , medical problems, risk/benefits and alternatives of medications, medications compliance, coping strategies, substance abuse h/o, relapse prevention, importance of follow up with psychiatrist and therapist, discharge plan. Medical Problems: POS h/o vaginal spotting pt was seen by medical team for that Diagnostic Results: 12/24/17 07:45 12/24/17 07:45 Lab Results 12/24/17 08:34: Urine HCG, Qual Negative 12/24/17 07:45: Iron 28 L, TIBC 316, % Saturation 9 L 12/24/17 07:45: Sodium 143, Potassium 4.3, Chloride 110 H, Carbon Dioxide 27, Anion Gap 11, BUN 18, Creatinine 0.7, Est GFR ( Amer) > 60, Est GFR (Non- Af Amer) > 60, Random Glucose 86, Calcium 9.2, Ferritin 6.2, Total Bilirubin 0.2 , AST 27, ALT 22, Alkaline Phosphatase 38, Total Protein 6.9, Albumin 3.7, Globulin 3.2, Albumin/Globulin Ratio 1.1, Vitamin B12 726, Folate 10.4 12/24/17 07:45: WBC 5.0, RBC 3.86, Hgb 10.6 L, Hct 33.4 L, MCV 86.5, MCH 27.5, MCHC 31.7, RDW 13.0, Plt Count 195, MPV 10.1, Gran % 49.9 L, Lymph % (Auto) 35.3 H, [place] % (Auto) 9.8 H, Eos % (Auto) 4.8, Baso % (Auto) 0.2, Gran # 2.49, Lymph # (Auto) 1.8, [place] # (Auto) 0.5, Eos # (Auto) 0.2, Baso # (Auto) 0.01 12/24/17 07:45: PT 11.5, INR 1.00, APTT 35.1 12/23/17 21:35: Blood Type Confirm B POSITIVE 12/23/17 21:15: Sodium 146, Potassium 3.9, Chloride 107, Carbon Dioxide 29, Anion Gap 13, BUN 13, Creatinine 1.0, Est GFR ( Amer) > 60, Est GFR (Non- Af Amer) > 60, Random Glucose 86, Calcium 9.4, Total Bilirubin 0.2, AST 24, ALT 24, Alkaline Phosphatase 39, Total Protein 7.4, Albumin 4.0, Globulin 3.4, Albumin/Globulin Ratio 1.2 12/23/17 21:15: Blood Type B POSITIVE, Antibody Screen Negative, Crossmatch See Detail, BBK History Checked No verified bt 12/23/17 21:15: WBC 5.9, RBC 3.87, Hgb 10.5 L, Hct 33.4 L, MCV 86.3, MCH 27.1, MCHC 31.4, RDW 12.9, Plt Count 224, MPV 10.2, Gran % 54.0, Lymph % (Auto) 31.3, [place] % (Auto) 10.0 H, Eos % (Auto) 4.2, Baso % (Auto) 0.5, Gran # 3.19, Lymph # (Auto) 1.9, [place] # (Auto) 0.6, Eos # (Auto) 0.3, Baso # (Auto) 0.03 12/20/17 07:00: RPR Nonreactive 12/20/17 07:00: Free T4 1.09, TSH 3rd Generation 1.15 12/20/17 07:00: Fasting Glucose 82, Triglycerides 60, Cholesterol 125 L, LDL Cholesterol Direct 62, HDL Cholesterol 42 Vital Signs Temp Pulse Pulse Resp BP Pulse Ox 12/25/17 07:02 98.2 F 74 20 90/55 L 12/24/17 16:00 81 94/57 L 12/24/17 07:44 97.4 F L 72 20 90/54 L 12/23/17 16:37 87 95/61 L 12/23/17 07:00 97.7 F 94 H 22 94/56 L 12/22/17 16:54 101 H 122/72 12/22/17 06:50 97.7 F 86 20 104/64 12/21/17 16:00 98 H 105/65 12/21/17 07:00 98.0 F 81 18 96/58 L 12/20/17 16:00 97 H 95/67 L 12/20/17 07:04 98.0 F 84 20 101/61 12/19/17 16:00 96 H 99/70 L 12/19/17 15:37 96 H 20 12/19/17 13:29 92 H 18 130/72 98 12/19/17 12:22 98.3 F 86 18 121/76 100 DSM 5 Symptoms Update: shortly patient is 37 year old female, self reported history of bipolar disorder , and generalized anxiety disorder, panic disorder, 1 previous psychiatric admission, patient denied history of suicidal attempts, patient was transferred from [facility] for evaluation and stabilization of depressive symptoms, worsening of anxiety, suicidal ideation with a plan to jump over the bridge, patient required further evaluation and stabilization, medication adjustment. patient was seen and examined today at the morning time at treatment team meeting room, pt said she feels "little better" but still depressed, "but I am more hopeful". pt said her sleep is mildly improved. pt denied any psychotic symptoms. pt has h/o RADHA, denied any panic attacks. pt started to go to groups, no behavioral incidents. pt tolerates meds well, but c/o sedation from seroquel, will change to XL. other than that no EPS, AIMS 0. Impression: DSM 5 Diagnosis: bipolar type II as per history, most recent episode mixed Rule out generalized anxiety disorder Rule out panic disorder Medication Change: Yes (seroquel XL, zoloft increased) Medical Record Reviewed: Yes Consults ordered or reviewed: medical consult appreciated, see notes for more detailed information Mental Status Examination - Cognitive Function Orientation: Person, Place, Situation, Time Attention: WNL Concentration: WNL Association: WNL Fund of Knowledge: WNL - Mood Mood: Depressed ("I am more hopeful"), Anxious (persists but more manageable), Neutral - Affect Affect: Constricted, Flat - Formal Thought Process Formal Thought Process: No Impairment - Suicidal Ideation Suicidal Ideation: No - Homicidal Ideation Homicidal Ideation: No Goal/Treatment Plan - Goal/Treatment Plan Need for Continued Stay: Remain at risks for inpatient hospitalization, Severe depression anxiety, Discharge may exacerbated symptoms, Severe functional impairment Progress Toward Problem(s) and Goals/Treatment Plan: Milieu/structure/supportive therapy Medical consult will be considered if needed SW consultation for discharge plan and social issues Med management patient wants to be introduced to Zoloft, 100 mg by mouth daily for depression and anxiety Seroquel xl 100 mg at the nighttime for mood stabilization onopin prn for anxiety Remeron as needed for insomnia and depression Family involvement Follow up on labs Will monitor closely Pt was educated about risk/benefits and alternatives of medications, coping strategies (safety plan, suicide prevention), relapse prevention, importance of follow up with psychiatrist and therapist, stay away from drugs/alcohol/smoking Estimated Date of D/C: 12/27/17
[2017-12-25] MEDS ORDERED: QUEtiapine 50 mg XR Tab PO SCH (22:00)
--- NOTE | 2017-12-26 11:10 | PCM.BM ---
<Lori Wright - Last Filed: 12/26/17 11:06> Treatment Plan Problems - Problems identified on initial assessmt Hopelessness Date Initiated: 12/19/17 (pt is hopeful and plan to go back to school) Time Initiated: Date resolved: 12/26/17 Assessment reference: NA Status: Active Priority: 1 Worthlessness Date Initiated: 12/19/17 Time Initiated: Date resolved: 12/26/17 Assessment reference: NA Status: Active Priority: 2 Ineffective Coping Date Initiated: 12/19/17 (positive coping skills verbalized of going back to school) Time Initiated: Date resolved: 12/26/17 Assessment reference: NA Status: Active Priority: 3 Anxiety Date Initiated: 12/19/17 ( and less depressed) Time Initiated: Assessment reference: NA Status: Active Priority: 4 - Milieu Protocol Milieu Narrative: Milieu/structure/supportive therapy Medical consult will be considered if needed SW consultation for discharge plan and social issues Med management patient wants to be introduced to Zoloft, 100 mg by mouth daily for depression and anxiety Seroquel xl 100 mg at the nighttime for mood stabilization klonopin prn for anxiety Remeron as needed for insomnia and depression Family involvement Follow up on labs Will monitor closely Pt was educated about risk/benefits and alternatives of medications, coping strategies (safety plan, suicide prevention), relapse prevention, importance of follow up with psychiatrist and therapist, stay away from drugs/alcohol/smoking Family Contact Family involvement: Family/SO is involved Family contact: Patient agrees to contact Family contact name: Roberto Carver(mother) [phone] Family contacted how many times per week?: 2 Discharge/Continuing Care - Treatment Team Participation Patient/Family/SO Statement: Milieu/structure/supportive therapy Medical consult will be considered if needed consultation for discharge plan and social issues Med management patient wants to be introduced to Zoloft, 100 mg by mouth daily for depression and anxiety Seroquel xl 100 mg at the nighttime for mood stabilization klonopin prn for anxiety Remeron as needed for insomnia and depression Family involvement Follow up on labs Will monitor closely Pt was educated about risk/benefits and alternatives of medications, coping strategies (safety plan, suicide prevention), relapse prevention, importance of follow up with psychiatrist and therapist, stay away from drugs/alcohol/smoking Treatment Plan Review - Problem Hopelessness Time Initiated: :43 Worthlessness Time Initiated: :43 Ineffective Coping Time Initiated: 14:43 Anxiety Time Initiated: 14:43 <Shauna Lambert - Last Filed: 12/26/17 12:48> - Diagnosis (1) Bipolar II disorder Status: Acute Interventions: 12/26/17 12:49 Psychoeducation, discussed meds, pt is aware of meds she is on, risk, benefits and alternatives, tolerates well, no side effects pt's sleep improving discussed the routine daily schedule, sleep, meals, activities. Evaluate pt on daily basis Compliance with medications and follow up appointments discussed with pt Suicide and homicide risk assessment, pt denied thoughts of harming self or others. coping strategies discussed, safety plan is discussed, pt has three safety plans , pt said that she will reach out for help, initially family, then her therapist /psychiatrist, or call 911 or come to the nearest ED. Relapse prevention, discussed importance to be on meds and take them as prescribed. Reduction of symptoms Improve functional status, pt wants to go back to school Family involvement As outpatient: cognitive behavioral therapy pt willing to go to [facility] (2) RADHA (generalized anxiety disorder) Status: Acute Interventions: 12/26/17 12:55 pt is compliant with meds and tx plan anxiety is improving pt tolerates meds well (3) Panic disorder Status: Acute Interventions: 12/26/17 12:55 Psychoeducation Psychopharmacology/adjustment of medications as needed/ monitoring possible side effects Evaluate pt on daily basis Discussion of importance of being compliant with medications and follow up appointments Reduction of symptoms Relaxation techniques and breathing exercises discussed Improve functional status Family involvement Cognitive behavioral therapy as outpatient <Dena Michael - Last Filed: 12/26/17 16:22>
--- NOTE | 2017-12-26 14:12 | PCM.PYCHPN ---
Psychiatric Progress Note - Psychiatric Progress Note Patient seen today, length of contact: 30min Patient Chief Complaint: "I want to go back to school, I am more optimistic" Problems Identified/Issues Discussed: Suicide/ homicide prevention, past psychiatric h/o, current psychiatric symptoms , medical problems, risk/benefits and alternatives of medications, medications compliance, coping strategies, substance abuse h/o, relapse prevention, importance of follow up with psychiatrist and therapist, discharge plan. Medical Problems: POS h/o vaginal spotting pt was seen by medical team for that Diagnostic Results: 12/24/17 07:45 12/24/17 07:45 Lab Results 12/24/17 08:34: Urine HCG, Qual Negative 12/24/17 07:45: Iron 28 L, TIBC 316, % Saturation 9 L 12/24/17 07:45: Sodium 143, Potassium 4.3, Chloride 110 H, Carbon Dioxide 27, Anion Gap 11, BUN 18, Creatinine 0.7, Est GFR ( Amer) > 60, Est GFR (Non- Af Amer) > 60, Random Glucose 86, Calcium 9.2, Ferritin 6.2, Total Bilirubin 0.2 , AST 27, ALT 22, Alkaline Phosphatase 38, Total Protein 6.9, Albumin 3.7, Globulin 3.2, Albumin/Globulin Ratio 1.1, Vitamin B12 726, Folate 10.4 12/24/17 07:45: WBC 5.0, RBC 3.86, Hgb 10.6 L, Hct 33.4 L, MCV 86.5, MCH 27.5, MCHC 31.7, RDW 13.0, Plt Count 195, MPV 10.1, Gran % 49.9 L, Lymph % (Auto) 35.3 H, [place] % (Auto) 9.8 H, Eos % (Auto) 4.8, Baso % (Auto) 0.2, Gran # 2.49, Lymph # (Auto) 1.8, [place] # (Auto) 0.5, Eos # (Auto) 0.2, Baso # (Auto) 0.01 12/24/17 07:45: PT 11.5, INR 1.00, APTT 35.1 12/23/17 21:35: Blood Type Confirm B POSITIVE 12/23/17 21:15: Sodium 146, Potassium 3.9, Chloride 107, Carbon Dioxide 29, Anion Gap 13, BUN 13, Creatinine 1.0, Est GFR ( Amer) > 60, Est GFR (Non- Af Amer) > 60, Random Glucose 86, Calcium 9.4, Total Bilirubin 0.2, AST 24, ALT 24, Alkaline Phosphatase 39, Total Protein 7.4, Albumin 4.0, Globulin 3.4, Albumin/Globulin Ratio 1.2 12/23/17 21:15: Blood Type B POSITIVE, Antibody Screen Negative, Crossmatch See Detail, BBK History Checked No verified bt 12/23/17 21:15: WBC 5.9, RBC 3.87, Hgb 10.5 L, Hct 33.4 L, MCV 86.3, MCH 27.1, MCHC 31.4, RDW 12.9, Plt Count 224, MPV 10.2, Gran % 54.0, Lymph % (Auto) 31.3, [place] % (Auto) 10.0 H, Eos % (Auto) 4.2, Baso % (Auto) 0.5, Gran # 3.19, Lymph # (Auto) 1.9, [place] # (Auto) 0.6, Eos # (Auto) 0.3, Baso # (Auto) 0.03 12/20/17 07:00: RPR Nonreactive 12/20/17 07:00: Free T4 1.09, TSH 3rd Generation 1.15 12/20/17 07:00: Fasting Glucose 82, Triglycerides 60, Cholesterol 125 L, LDL Cholesterol Direct 62, HDL Cholesterol 42 Vital Signs Temp Pulse Pulse Resp BP Pulse Ox 12/25/17 07:02 98.2 F 74 20 90/55 L 12/24/17 16:00 81 94/57 L 12/24/17 07:44 97.4 F L 72 20 90/54 L 12/23/17 16:37 87 95/61 L 12/23/17 07:00 97.7 F 94 H 22 94/56 L 12/22/17 16:54 101 H 122/72 12/22/17 06:50 97.7 F 86 20 104/64 12/21/17 16:00 98 H 105/65 12/21/17 07:00 98.0 F 81 18 96/58 L 12/20/17 16:00 97 H 95/67 L 12/20/17 07:04 98.0 F 84 20 101/61 12/19/17 16:00 96 H 99/70 L 12/19/17 15:37 96 H 20 12/19/17 13:29 92 H 18 130/72 98 12/19/17 12:22 98.3 F 86 18 121/76 100 Temp Pulse Resp BP Pulse Ox 97.6 F 78 20 86/55 L 98 12/26/17 07:41 12/26/17 07:41 12/26/17 07:41 12/26/17 07:41 12/19/17 13:29 DSM 5 Symptoms Update: shortly patient is 37 year old female, with reported history of bipolar disorder , and generalized anxiety disorder, panic disorder, 1 previous psychiatric admission, patient denied history of suicidal attempts, patient was transferred from [facility] for evaluation and stabilization of depressive symptoms, worsening of anxiety, suicidal ideation with a plan to jump over the bridge, patient required further evaluation and stabilization, medication adjustment. patient was seen and examined today at the treatment team meeting, pt said that she did not sleep well last night, pt feels it was related to the XR of seroquel , asked to be switched back to the regular form, pt said she was feeling more anxious, mind was racing over night. pt was educated about importance to keep her routine schedule, scheduled meals, night sleep routine. pt said that she is more hopeful, wants to go back to school. pt was offered to go to IOP ( intensive outpatient program), pt agreed. pt denied any psychotic symptoms. pt has h/o RADHA, denied any panic attacks. pt started to go to groups, no behavioral incidents. pt tolerates meds well, no EPS, AIMS 0. Impression: DSM 5 Diagnosis: bipolar type II as per history, most recent episode mixed Rule out generalized anxiety disorder Rule out panic disorder Medication Change: Yes (seroquel regular release) Medical Record Reviewed: Yes Consults ordered or reviewed: medical consult appreciated, see notes for more detailed information Mental Status Examination - Cognitive Function Orientation: Person, Place, Situation, Time Attention: WNL Concentration: WNL Association: WNL Fund of Knowledge: WNL - Mood Mood: Depressed ("I am more hopeful"), Anxious (persists but more manageable), Neutral - Affect Affect: Constricted, Flat - Formal Thought Process Formal Thought Process: No Impairment - Suicidal Ideation Suicidal Ideation: No - Homicidal Ideation Homicidal Ideation: No Goal/Treatment Plan - Goal/Treatment Plan Need for Continued Stay: Remain at risks for inpatient hospitalization, Severe depression anxiety, Discharge may exacerbated symptoms, Severe functional impairment Progress Toward Problem(s) and Goals/Treatment Plan: Milieu/structure/supportive therapy Medical consult will be considered if needed SW consultation for discharge plan and social issues Med management Zoloft, 100 mg by mouth daily for depression and anxiety Seroquel regular release 100 mg at the nighttime for mood stabilization klonopin prn for anxiety Remeron as needed for insomnia and depression Family involvement Follow up on labs Will monitor closely Pt was educated about risk/benefits and alternatives of medications, coping strategies (safety plan, suicide prevention), relapse prevention, importance of follow up with psychiatrist and therapist, stay away from drugs/alcohol/smoking Estimated Date of D/C: 12/27/17
--- NOTE | 2017-12-27 14:27 | PCM.PYCHPN ---
Psychiatric Progress Note - Psychiatric Progress Note Patient seen today, length of contact: 30min Patient Chief Complaint: "I feel little anxious to go back home..." Problems Identified/Issues Discussed: Suicide/ homicide prevention, past psychiatric h/o, current psychiatric symptoms , medical problems, risk/benefits and alternatives of medications, medications compliance, coping strategies, substance abuse h/o, relapse prevention, importance of follow up with psychiatrist and therapist, discharge plan. Medical Problems: POS h/o vaginal spotting pt was seen by medical team for that Diagnostic Results: 12/24/17 07:45 12/24/17 07:45 Lab Results 12/24/17 08:34: Urine HCG, Qual Negative 12/24/17 07:45: Iron 28 L, TIBC 316, % Saturation 9 L 12/24/17 07:45: Sodium 143, Potassium 4.3, Chloride 110 H, Carbon Dioxide 27, Anion Gap 11, BUN 18, Creatinine 0.7, Est GFR ( Amer) > 60, Est GFR (Non- Af Amer) > 60, Random Glucose 86, Calcium 9.2, Ferritin 6.2, Total Bilirubin 0.2 , AST 27, ALT 22, Alkaline Phosphatase 38, Total Protein 6.9, Albumin 3.7, Globulin 3.2, Albumin/Globulin Ratio 1.1, Vitamin B12 726, Folate 10.4 12/24/17 07:45: WBC 5.0, RBC 3.86, Hgb 10.6 L, Hct 33.4 L, MCV 86.5, MCH 27.5, MCHC 31.7, RDW 13.0, Plt Count 195, MPV 10.1, Gran % 49.9 L, Lymph % (Auto) 35.3 H, [place] % (Auto) 9.8 H, Eos % (Auto) 4.8, Baso % (Auto) 0.2, Gran # 2.49, Lymph # (Auto) 1.8, [place] # (Auto) 0.5, Eos # (Auto) 0.2, Baso # (Auto) 0.01 12/24/17 07:45: PT 11.5, INR 1.00, APTT 35.1 12/23/17 21:35: Blood Type Confirm B POSITIVE 12/23/17 21:15: Sodium 146, Potassium 3.9, Chloride 107, Carbon Dioxide 29, Anion Gap 13, BUN 13, Creatinine 1.0, Est GFR ( Amer) > 60, Est GFR (Non- Af Amer) > 60, Random Glucose 86, Calcium 9.4, Total Bilirubin 0.2, AST 24, ALT 24, Alkaline Phosphatase 39, Total Protein 7.4, Albumin 4.0, Globulin 3.4, Albumin/Globulin Ratio 1.2 12/23/17 21:15: Blood Type B POSITIVE, Antibody Screen Negative, Crossmatch See Detail, BBK History Checked No verified bt 12/23/17 21:15: WBC 5.9, RBC 3.87, Hgb 10.5 L, Hct 33.4 L, MCV 86.3, MCH 27.1, MCHC 31.4, RDW 12.9, Plt Count 224, MPV 10.2, Gran % 54.0, Lymph % (Auto) 31.3, [place] % (Auto) 10.0 H, Eos % (Auto) 4.2, Baso % (Auto) 0.5, Gran # 3.19, Lymph # (Auto) 1.9, [place] # (Auto) 0.6, Eos # (Auto) 0.3, Baso # (Auto) 0.03 12/20/17 07:00: RPR Nonreactive 12/20/17 07:00: Free T4 1.09, TSH 3rd Generation 1.15 12/20/17 07:00: Fasting Glucose 82, Triglycerides 60, Cholesterol 125 L, LDL Cholesterol Direct 62, HDL Cholesterol 42 Vital Signs Temp Pulse Pulse Resp BP Pulse Ox 12/25/17 07:02 98.2 F 74 20 90/55 L 12/24/17 16:00 81 94/57 L 12/24/17 07:44 97.4 F L 72 20 90/54 L 12/23/17 16:37 87 95/61 L 12/23/17 07:00 97.7 F 94 H 22 94/56 L 12/22/17 16:54 101 H 122/72 12/22/17 06:50 97.7 F 86 20 104/64 12/21/17 16:00 98 H 105/65 12/21/17 07:00 98.0 F 81 18 96/58 L 12/20/17 16:00 97 H 95/67 L 12/20/17 07:04 98.0 F 84 20 101/61 12/19/17 16:00 96 H 99/70 L 12/19/17 15:37 96 H 20 12/19/17 13:29 92 H 18 130/72 98 12/19/17 12:22 98.3 F 86 18 121/76 100 Temp Pulse Resp BP Pulse Ox 97.6 F 78 20 86/55 L 98 12/26/17 07:41 12/26/17 07:41 12/26/17 07:41 12/26/17 07:41 12/19/17 13:29 Temp Pulse Resp BP Pulse Ox 97.9 F 76 18 84/47 L 98 12/27/17 07:31 12/27/17 07:31 12/27/17 07:31 12/27/17 07:31 12/19/17 13:29 DSM 5 Symptoms Update: shortly patient is 37 year old female, with reported history of bipolar disorder , and generalized anxiety disorder, panic disorder, 1 previous psychiatric admission, patient denied history of suicidal attempts, patient was transferred from [facility] for evaluation and stabilization of depressive symptoms, worsening of anxiety, suicidal ideation with a plan to jump over the bridge, patient required further evaluation and stabilization, medication adjustment. patient was seen and examined today at the treatment team meeting room with SW to discuss the d/c plan, pt said that she feels "good, but I feel little anxious to go back home, I am anxious to go back to work", pt thinks that it is "normal to feel this way", reported that her anxiety is manageable. pt slept better, tolerated meds well, no side effects observed or reported. pt said that her mother could pick her up tomorrow. pt denied any psychotic symptoms. pt has h/o RADHA, denied any panic attacks. pt started to go to groups, no behavioral incidents. pt tolerates meds well, no EPS, AIMS 0. Impression: DSM 5 Diagnosis: bipolar type II as per history, most recent episode mixed Rule out generalized anxiety disorder Rule out panic disorder Medication Change: Yes (remeron d/c) Medical Record Reviewed: Yes Consults ordered or reviewed: medical consult appreciated, see notes for more detailed information Mental Status Examination - Cognitive Function Orientation: Person, Place, Situation, Time Attention: WNL Concentration: WNL Association: WNL Fund of Knowledge: WNL - Mood Mood: Depressed ("I am more hopeful"), Anxious (persists but more manageable), Neutral - Affect Affect: Constricted, Flat - Formal Thought Process Formal Thought Process: No Impairment - Suicidal Ideation Suicidal Ideation: No - Homicidal Ideation Homicidal Ideation: No Goal/Treatment Plan - Goal/Treatment Plan Need for Continued Stay: Remain at risks for inpatient hospitalization, Severe depression anxiety, Discharge may exacerbated symptoms, Severe functional impairment Progress Toward Problem(s) and Goals/Treatment Plan: Milieu/structure/supportive therapy Medical consult will be considered if needed SW consultation for discharge plan and social issues Med management Zoloft, 100 mg by mouth daily for depression and anxiety Seroquel regular release 100 mg at the nighttime for mood stabilization klonopin prn for anxiety Remeron d/c Family involvement Follow up on labs Will monitor closely Pt was educated about risk/benefits and alternatives of medications, coping strategies (safety plan, suicide prevention), relapse prevention, importance of follow up with psychiatrist and therapist, stay away from drugs/alcohol/smoking Estimated Date of D/C: 12/28/17 (pt's mother will pick pt ) - Smoking Cessation Smoking Cessation Initiated: No
[2017-12-28 07:45] VITALS: BP 88/51; PULSE 70; RESP 20; TEMP 98.1
[2017-12-28] MEDS ORDERED: Influenza Vaccine 60 mcg/0.5 mL SYR (4YR UP) IM ONE (11:35)
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
== END 2017-12-28 14:10 | disposition home or self-care (01) | DRG 430 ==
LOC: ED 12:04 → ERH 13:13 → PSYC 13:51
PROVIDERS: ADMIT Psychiatry & Neurology Psychiatry; ATTEND Psychiatry & Neurology Psychiatry
DX: F31.81 Bipolar II disorder (principal); F41.1 Generalized anxiety disorder; F41.0 Panic disorder [episodic paroxysmal anxiety]; D64.9 Anemia, unspecified; E28.2 Polycystic ovarian syndrome; N93.8 Other specified abnormal uterine and vaginal bleeding; Z91.14 Patient's other noncompliance with medication regimen